=== PATIENT | female | born 2000 | race Caucasian/White ===

== ENCOUNTER 2018-09-06 18:44 | Emergency (ER) | payer OTHER ==
--- NOTE | 2018-09-06 20:03 | ER Document Report ---
ED Medical Screen (RME) - General Chief Complaint: Vaginal Bleeding Stated Complaint: BLEEDING WITH Time Seen by Provider: 09/06/18 19:59 Mode of Arrival: Ambulatory Information source: Patient Notes: 17-year-old female coming today with pelvic cramping and vaginal bleeding. She said 2+ home test at home and comes in today concerned that she is having a miscarriage. I have treated and performed a rapid initial assessment of this patient. A comprehensive ED assessment and evaluation of the patient, analysis of test results and completion of medical decision making process will be conducted by additional ED providers. PHYSICAL EXAMINATION: GENERAL: Well-appearing, well-nourished and in no acute distress. A&Ox4. Answers questions appropriately. LUNGS: Breath sounds clear to auscultation bilaterally and equal. No wheezes rales or rhonchi. HEART: Regular rate and rhythm without murmurs, rubs, gallops. ABDOMEN: Soft, nondistended abdomen. No guarding, no rebound. Normal bowel sounds present. No CVA tenderness bilaterally. Extremities: No cyanosis, clubbing, or edema b/l. NEUROLOGICAL: Normal speech, normal gait. PSYCH: Normal mood, normal affect. - Related Data Allergies/Adverse Reactions: No Known Allergies Allergy (Unverified 09/06/18 18:47) Past Medical History - General Last Menstrual Period: 06/11/2018 - Social History Frequency of alcohol use: None Drug Abuse: None Renal/ Medical History: Denies: Hx Peritoneal Dialysis Physical Exam - Vital signs Vitals: Temp Pulse Resp BP Pulse Ox 98.5 F 88 16 87/42 L 100 09/06/18 19:24 09/06/18 19:24 09/06/18 19:24 09/06/18 19:24 09/06/18 19:24 Course - Vital Signs Vital signs: Temp Pulse Resp BP Pulse Ox 98.5 F 88 16 87/42 L 100 09/06/18 19:24 09/06/18 19:24 09/06/18 19:24 09/06/18 19:24 09/06/18 19:24
[2018-09-06] MEDS ORDERED: NORMAL SALINE 1000 ML 1,000 ML IV ONE (20:54)
[2018-09-06 21:39] LABS: HEMATOCRIT 31.4 % (36.0-47.0); HEMOGLOBIN 10.7 g/dL (12.0-15.5); MEAN CORPUSCULAR HEMOGLOBIN 29.6 pg (27.0-33.4); MEAN CORPUSCULAR HGB CONC 34.1 g/dL (32.0-36.0); MEAN CORPUSCULAR VOLUME 87 fl (80-97); PLATELET COUNT 239 10^3/uL (150-450); RED BLOOD COUNT 3.62 10^6/uL (3.72-5.28); RED CELL DISTRIBUTION WIDTH 14.2 % (11.5-14.0); WHITE BLOOD COUNT 11.3 10^3/uL (4.0-10.5)
--- NOTE | 2018-09-06 21:40 | RADIOLOGY REPORT (SQ) ---
EXAM DESCRIPTION: US TRANSVAGINAL COMPLETED DATE/TME: 09/06/2018 20:03 CLINICAL HISTORY: 17 years, Female, abd pain, vag bleed, 2 month preg COMPARISON: None. TECHNIQUE: Transverse and longitudinal transvaginal sonographic images of the pelvis in a first trimester patient LIMITATIONS: None. FINDINGS: The uterus measures 9.6 x 5.7 x 6.0 cm. Endometrium measures 1.3 cm in thickness. There is no definitive intrauterine gestational sac, pole, or yolk sac. The right ovary measures 2.3 x 1.4 x 3.3 cm, the left 2.2 x 1.7 x 1.9 cm. Doppler and spectral analysis with color flow was utilized. Arterial and venous flow to both ovaries. No adnexal cyst or mass. No free fluid. IMPRESSION: No definitive intrauterine gestational sac or pole at this time. Correlate with beta hCG levels. Nonemergent obstetric follow-up recommended copyright 2010 [id number]- All Rights Reserved
[2018-09-06 21:53] LABS: ALANINE AMINOTRANSFERASE 18 U/L (5-35); ALBUMIN 4.2 g/dL (3.7-5.6); ALKALINE PHOSPHATASE 67 U/L (50-135); ANION GAP 11 (5-19); ASPARTATE AMINO TRANSFERASE 21 U/L (5-30); BILIRUBIN,DIRECT 0.2 mg/dL (0.0-0.4); BILIRUBIN,TOTAL 0.2 mg/dL (0.2-1.3); BLOOD UREA NITROGEN 11 mg/dL (7-20); CALCIUM 8.7 mg/dL (8.4-10.2); CARBON DIOXIDE 23 mmol/L (22-30); CHLORIDE 103 mmol/L (98-107); GLUCOSE 124 mg/dL (75-110); POTASSIUM 3.6 mmol/L (3.6-5.0); SODIUM 136.7 mmol/L (137-145); TOTAL PROTEIN 6.8 g/dL (6.3-8.2)
[2018-09-06 22:07] LABS: ABSOLUTE LYMPHOCYTES# (MANUAL) 0.6 10^3/uL (0.5-4.7); ABSOLUTE MONOCYTES # (MANUAL) 0.1 10^3/uL (0.1-1.4); ABSOLUTE NEUTROPHILS# (MANUAL) 10.6 10^3/uL (1.7-8.2); BAND NEUTROPHILS % (MANUAL) 4 % (3-5); BASOPHILS % (MANUAL) 0 % (0-2); EOSINOPHILS % (MANUAL) 0 % (0-6); HYPOCHROMASIA SLIGHT; LYMPHOCYTES % (MANUAL) 5 % (13-45); MONOCYTES % (MANUAL) 1 % (3-13); PLATELET COMMENT ADEQUATE; SEGMENTED NEUTROPHILS % (MAN) 90 % (42-78); TOTAL CELLS COUNTED 100
--- NOTE | 2018-09-07 00:09 | ER Document Report ---
ED General - General Chief Complaint: Vaginal Bleeding Stated Complaint: BLEEDING WITH Time Seen by Provider: 09/06/18 19:59 Primary Care Provider: MIKE RICHARDS MD [ACTIVE STAFF] - Follow up as needed Mode of Arrival: Ambulatory Information source: Patient Notes: HISTORY OF PRESENT ILLNESS: Patient is a 17-year-old female at approximately 9-10 weeks estimated gestational age based off last menstrual period and no significant past medical history who presents with vaginal bleeding for the past 3 days and pelvic pain since yesterday. Location: Lower abdomen/pelvis Onset: Gradual Provocation: Movement Quality: "Cramping" Radiation: None Severity: "Severe" Timing: Constant LMP: "The first or second week of June I think" Associated symptoms: Vaginal bleeding but denies discharge, no fevers or chills, no injury to her knowledge REVIEW OF SYSTEMS: CONSTITUTIONAL : Denies fever or chills, no sweats. Denies recent illness. EENT: Denies eye, ear, throat, or mouth pain or symptoms. Denies nasal or sinus congestion. CARDIOVASCULAR: Denies chest pain. RESPIRATORY: Denies cough, cold, or chest congestion. Denies shortness of ishmael th, difficulty breathing, or wheezing. GASTROINTESTINAL: Positive for abdominal pain. Denies nausea, vomiting, or diarrhea. Denies constipation. GENITOURINARY: Denies difficulty urinating, painful urination, burning, frequency, or blood in urine. Positive for vaginal bleeding but no discharge. MUSCULOSKELETAL: Denies neck or back pain or joint pain or swelling. SKIN: Denies rash or skin lesions. HEMATOLOGIC : Denies easy bruising or bleeding. LYMPHATIC: Denies swollen, enlarged glands. NEUROLOGICAL: Denies altered mental status or loss of consciousness. Denies headache. Denies weakness or paralysis or loss of use of either side. Denies problems with gait or speech. Denies sensory or motor loss. PSYCHIATRIC: Denies anxiety or stress or depression. All other systems reviewed and negative. PHYSICAL EXAMINATION: GENERAL: Upset-appearing, well-nourished and in no acute distress. HEAD: Atraumatic, normocephalic. No scalp deformity, depression, or crepitance. EYES: Pupils are 3 mm and equal/round/reactive to light, extraocular movements intact, sclera anicteric, conjunctiva are normal. ENT: Nares patent bilaterally, oropharynx clear without exudates or palatal petechia. Moist mucous membranes. No tonsil hypertrophy. NECK: Normal range of motion, supple without lymphadenopathy. LUNGS: Breath sounds present, equal, and clear to auscultation bilaterally. No wheezes, rales, or rhonchi. HEART: Regular rate and rhythm without murmurs, rubs, or gallops. 2+ peripheral pulses. Normal capillary refill. ABDOMEN: Soft without distention, mild tenderness in the lower pelvis. Normoactive bowel sounds. No guarding, no rebound. No masses appreciated. BACK: Normal contour, no midline tenderness. Rectal exam deferred. PELVC: Deferred. EXTREMITIES: Normal range of motion, no pitting or edema. No cyanosis. NEUROLOGICAL: No focal neurological deficits. Moves all extremities spontaneously and on command. PSYCH: Normal mood, normal affect. No suicidal thoughts/ideations. No homocidal thoughts/ideations. No hallucinations. SKIN: Warm, dry, normal turgor, no rashes or lesions noted. ASSESSMENT AND PLAN: This patient is a 17-year-old female at approximately 9-10 weeks who presents with vaginal bleeding that could represent completed versus th reatened versus placenta previa. 1. Will obtain labs, urine, quantitative hCG, and pelvic ultrasound. 2. Will reassess. TRAVEL OUTSIDE OF THE [place] IN LAST 30 DAYS: No - Related Data Allergies/Adverse Reactions: No Known Allergies Allergy (Unverified 09/06/18 18:47) Past Medical History - General Information source: Patient Last Menstrual Period: 06/11/2018 - Social History Smoking Status: Never Smoker Chew tobacco use (# tins/day): No Frequency of alcohol use: None Drug Abuse: None Lives with: Family Family History: None Patient has suicidal ideation: No Patient has homicidal ideation: No - Medical History Medical History: Negative - Past Medical History Cardiac Medical History: Reports: None Pulmonary Medical History: Reports: None EENT Medical History: Reports: None Neurological Medical History: Reports: None Endocrine Medical History: Reports: None Renal/ Medical History: Reports: None. Denies: Hx Peritoneal Dialysis Malignancy Medical History: Reports: None GI Medical History: Reports: None Musculoskeletal Medical History: Reports None Skin Medical History: Reports None Psychiatric Medical History: Reports: None Traumatic Medical History: Reports: None Infectious Medical History: Reports: None Surgical Hx: Negative Past Surgical History: Reports: None - Immunizations Immunizations up to date: Yes Hx Diphtheria, Pertussis, Tetanus Vaccination: Yes History of Influenza Vaccine for 05/2017 - 09/2017 Season: Unknown Physical Exam - Vital signs Vitals: Temp Pulse Resp BP Pulse Ox 98.5 F 88 16 87/42 L 100 09/06/18 19:24 09/06/18 19:24 09/06/18 19:24 09/06/18 19:24 09/06/18 19:24 Course - Re-evaluation Re-evalutation: 09/07/18 00:05 Labs show stable hemoglobin, appropriately elevated quantitative hCG. Ultr asound shows no evidence of intrauterine , raising suspicion for completed . Patient has been informed of this and has been instructed to follow-up with [employer] in the next 24-48 hours to have her blood rechecked and be reevaluated. Patient will be discharged home with return precautions and follow-up. Patient and her voiced both understanding and agreeing with the plan. - Vital Signs Vital signs: Temp Pulse Resp BP Pulse Ox 98.8 F 83 16 91/45 L 98 09/06/18 21:09 09/06/18 21:09 09/06/18 21:09 09/06/18 21:09 09/06/18 21:09 - Laboratory Result Diagrams: 09/06/18 21:16 09/06/18 21:16 Laboratory results interpreted by me: 09/06/18 09/06/18 21:16 21:16 WBC 11.3 H RBC 3.62 L Hgb 10.7 L Hct 31.4 L RDW 14.2 H Seg Neuts % (Manual) 90 H Lymphocytes % (Manual) 5 L Monocytes % (Manual) 1 L Abs Neuts (Manual) 10.6 H Sodium 136.7 L Creatinine 0.41 L Glucose 124 H Beta HCG, Quant 1696.30 H - Diagnostic Test Radiology reviewed: Image reviewed, Reports reviewed Discharge - Discharge Clinical Impression: Vaginal bleeding, Spontaneous miscarriage Condition: Good Disposition: HOME, SELF-CARE Instructions: Miscarriage ([facility]) Additional Instructions: You have been evaluated in the Emergency Department for vaginal bleeding and abdominal pain related to a possible spontaneous miscarriage. All of your blood work is normal, however, the ultrasound did not show evidence of a . Please follow-up with an [employer] as instructed in the next 24-48 hours. Return to the Emergency Department if you experience worsening abdominal pain, worsening bleeding, episodes of passing out, or any other concerning symptoms. Forms: Return to Work Referrals: MIKE RICHARDS MD [ACTIVE STAFF] - Follow up as needed Print Language: Citizen Of [place]
[2018-09-07 01:37] VITALS: BP 101/58
[2018-09-07 01:43] LABS: APPEARANCE,URINE SLIGHTLY-CLOUDY; BILIRUBIN,URINE NEGATIVE (NEGATIVE); COLOR,URINE YELLOW; GLUCOSE, URINE NEGATIVE (NEGATIVE); KETONES,URINE 20 mg/dL (NEGATIVE); LEUKOCYTE ESTERASE,URINE NEGATIVE (NEGATIVE); NITRITE,URINE NEGATIVE (NEGATIVE); PROTEIN,URINE NEGATIVE (NEGATIVE); URINE SPECIFIC GRAVITY 1.006; UROBILINOGEN,URINE NEGATIVE mg/dL (<2.0)
== END 2018-09-07 01:46 | disposition home or self-care (01) ==
LOC: ER 18:44
DX: O03.9 Complete or unspecified spontaneous abortion without complication (principal); O26.891 Other specified pregnancy related conditions, first trimester; R10.30 Lower abdominal pain, unspecified; Z3A.10 10 weeks gestation of pregnancy
CPT/HCPCS: 99284; 96360; 86900; 86901; 36415; 84702; 85025; 80053; 81001; 76817; 93976; J7030